=== PATIENT | female | born 1955 ===

== ENCOUNTER → 2017-09-18 12:03 | Emergency (ER) | payer OTHER ==
[2017-09-18 12:35] VITALS: BP 186/113
--- NOTE | 2017-09-18 13:30 | RAD ---
INDICATION: Headaches COMPARISON: None TECHNIQUE: Noncontrast axial source images were acquired from the skull base to the vertex. FINDINGS: Ventricles/sulci: There is no hydrocephalus or midline shift. There may be minor effacement of the left lateral ventricle. Brain parenchyma: There is no focal parenchymal finding. There is no discrete intracranial mass. Intracranial hemorrhage: No intra-axial hemorrhage. Extra-axial spaces: There is a subacute to chronic, left-sided, interhemispheric, subdural hematoma. There is sulcal effacement in the left cerebral hemisphere. The subdural hematoma measures 8 mm in thickness. Calvarium: There is no calvarial fracture or other calvarial abnormality. Scalp: There is no evidence of scalp or extracalvarial soft tissue abnormality. Paranasal sinuses/mastoid: The paranasal sinuses and mastoid air cells are clear. Other: None. IMPRESSION: LEFT-SIDED SUBDURAL HEMATOMA WITH MINOR MASS EFFECT CONSISTING OF SULCAL EFFACEMENT Findings called to urgent care following the examination.
--- NOTE | 2017-09-18 17:44 | UC ---
Jeff Garibay Angela, scribed for Eric Estrada MD on 09/18/17 at 1248 . Minor Trauma HPI - HPI Summary HPI Summary: This pt is a 61 y/o female presenting to [facility] for lower extremity numbness, especially on the right for the past 3 weeks. Pt states that 3 weeks ago she was roller skating when she slipped and fell hitting the back of her head. Pt was weaing a helmet. Denies LOC. Pt notes she was dazed and was seeing lights. She then developed headache, nausea and vomiting for 48 hours but her symptoms resolved after. Pt reports she began to have lower extremity numbness, especially on the right. Today she states her intermittent numbness is worse. Denies weakness, back pain, hip pain. - History of Current Complaint Chief Complaint: UCLowerExtremity Stated Complaint: LEG NUMBNESS Time Seen by Provider: 09/18/17 12:37 Hx Obtained From: Patient Onset/Duration: Lasting Weeks, Still Present Severity Currently: None Pain Intensity: 0 Pain Scale Used: 0-10 Numeric Mechanism Of Injury: Direct Blow Aggravating Factor(s): Nothing Alleviating Factor(s): Nothing Associated Signs And Symptoms: Negative: Loss Of Consciousness, Ecchymosis, Swelling - Allergies/Home Medications Allergies/Adverse Reactions: Allergies Allergy/AdvReac Type Severity Reaction Status Date / Time Penicillins Allergy Unknown Verified 09/18/17 12:22 Reaction Details Home Medications: Home Medications Atenolol 50 mg pe PO DAILY 09/18/17 [History Confirmed 09/18/17] Conjugated Estrogens VAG CM* [Premarin VAG CREAM*] 0.5 gm VAGINAL WEEKLY [History Confirmed 09/18/17] Escitalopram (NF) [Lexapro 10 mg (NF)] 10 mg PO DAILY 09/18/17 [History Confirmed 09/18/17] Piroxicam CAP* [Feldene CAP*] 20 mg PO DAILY PRN 09/18/17 [History Confirmed ] Pravastatin (NF) [Pravachol (NF)] 20 mg PO DAILY 09/18/17 [History Confirmed ] Tramadol HCl 50 mg PO Q8HR PRN 09/18/17 [History Confirmed 09/18/17] Triamterene/HCTZ 37.5-25 MG* [Dyazide CAP*] 1 cap PO DAILY 09/18/17 [History Confirmed 09/18/17] clonazePAM [Clonazepam] 0.25 mg PO BID PRN 09/18/17 [History Confirmed 09/18/17] PMH/Surg Hx/FS Hx/Imm Hx Other Endocrine History: DENIES: diabetes Cardiovascular History: Hypertension - Surgical History Surgical History: Yes Surgery Procedure, Year, and Place: knee surgery - Family History Known Family History: Positive: Hypertension - Social History Alcohol Use: Occasionally Substance Use Type: None Smoking Status (MU): Never Smoked Tobacco Review of Systems Constitutional: Negative Skin: Negative Eyes: Negative ENT: Negative Respiratory: Negative Cardiovascular: Negative Gastrointestinal: Negative Genitourinary: Negative Motor: Negative Neurovascular: Negative Musculoskeletal: Negative Neurological: Numbness - in right lower extremity Psychological: Negative All Other Systems Reviewed And Are Negative: Yes Physical Exam - Summary Physical Exam Summary: VITAL SIGNS: Reviewed. GENERAL: Patient is a well-developed and nourished female who is lying comfortable in the stretcher. Patient is not in any acute respiratory distress. HEAD AND FACE: Normocephalic EYES: PERRLA, EOMI x 2. EARS: Hearing grossly intact. MOUTH: Oropharynx within normal limits. NECK: Supple, trachea is midline, no adenopathy, no JVD, no carotid bruit. CHEST: Symmetric, no tenderness at palpation LUNGS: Clear to auscultation bilaterally. No wheezing or crackles. CVS: Regular rate and rhythm, S1 and S2 present, no murmurs or gallops appreciated. ABDOMEN: Soft, non-tender. Bowel sounds are normal. No abdominal abnormal pulsations. EXTREMITIES: Full ROM in all major joints, no edema, no cyanosis or clubbing. NEURO: Alert and oriented x 3. No acute neurological deficits. Speech is normal and follows commands. SKIN: Dry and warm GCS: 15 Triage Information Reviewed: Yes Vital Signs: Initial Vital Signs Temp 99 F 09/18/17 12:28 Pulse 75 09/18/17 12:28 Resp 16 09/18/17 12:28 BP 186/113 09/18/17 12:28 Pulse Ox 97 09/18/17 12:28 Vital Signs Reviewed: Yes Diagnostics - Laboratory Diagnostic Studies Completed/Ordered: Brain CT, as read by radiologist. IMPRESSION: Left sided subdural hematoma with minor mass effect consisting of sulcal effacement. Dr. Estrada has reviewed this radiology report. Re-Evaluation - Re-Evaluation First Eval Re-Evaluation Time: 13:43 Comment: I reviewed the CT results with the pt. Pt will be transferred to the ED. Minor Trauma Course/Dx - Course Course Of Treatment: This pt is a 61 y/o female presenting to [facility] for lower extremity numbness, especially on the right for the past 3 weeks. Pt states that 3 weeks ago she was roller skating when she slipped and fell hitting the back of her head. Denies LOC. Pt notes she was dazed and was seeing lights. She then developed headache, nausea and vomiting for 48 hours but her symptoms resolved after. Pt reports she began to have lower extremity numbness, especially on the right. Today she states her intermittent numbness is worse. Denies weakness, back pain, hip pain. The pt right now does not have any neurological deficits. Brain CT shows left sided subdural hematoma with minor mass effect consisting of sulcal effacement. I discussed the case with Dr. Melgar, neurosurgeon, who recommends to discharge the pt home with follow up in his office on Monday (09/20/17) at 09:00. The pt was given instruction to go to the emergency room immediately for numbness, weakness, headache, dizziness , altered mental status, or any worsening or new symptoms. The pt understands and agrees. All questions were answered to patient satisfaction. There were no further complaints or concerns. Pt will be discharged to home with follow up from Dr. Melgar. Pt is hemodynamically stable, alert and oriented x3. - Differential Dx/Diagnosis Provider Diagnoses: Subdural hematoma - Physician Notifications Discussed Patient Care With: Jose J Melgar Time Discussed With Above Provider: 13:47 Instructed by Provider To: Other - I discussed pt care with Dr. Melgar, neurosurgeon, who reports the pt can be discharged home with follow up in his office on Monday. Discharge - Sign-Out/Discharge Documenting (check all that apply): Discharge - discharge to home - Discharge Plan Condition: Stable Disposition: HOME Patient Education Materials: Hemorrhagic Stroke (DC) Referrals: [facility] [Outside] Jose J Melgar MD [Medical Doctor] - (Follow up with Dr. Melgar on Monday at 09:00 AM. ) Additional Instructions: Follow up with Dr. Melgar on Monday (09/20/17) at 09:00 AM. FOLLOW UP WITH YOUR PRIMARY CARE PROVIDER WITHIN ONE WEEK FOR HIGH BLOOD PRESSURE NOTED TODAY. RETURN TO URGENT CARE OR THE ED FOR ANY WORSENING OR NEW SYMPTOMS. The documentation as recorded by the Jeff abebe Angela accurately reflects the service I personally performed and the decisions made by , Eric Estrada MD.
== END | disposition home or self-care (01) ==
LOC: UCEAST 12:03
DX: S06.5X0A Traumatic subdural hemorrhage without loss of consciousness, initial encounter (principal); W01.0XXA Fall on same level from slipping, tripping and stumbling without subsequent striking against object, initial encounter; Y93.51 Activity, roller skating (inline) and skateboarding; Y92.331 Roller skating rink as the place of occurrence of the external cause; R51 Headache; I10 Essential (primary) hypertension; Z88.0 Allergy status to penicillin
CPT/HCPCS: 70450; 99201; G0463